=== PATIENT | male | born 1960 | race Caucasian/White ===

== ENCOUNTER 2021-09-05 11:10 | Emergency (ER) | payer OTHER ==
[~2021-09-05] VITALS: Ht 182.9 cm; Wt 84.0 kg
[2021-09-05] MEDS ORDERED: ONDANSETRON PF 4 MG/2 ML VIAL. IVP ONE (12:30)
[2021-09-05] MEDS ORDERED: fentaNYL PF VIAL 100 MCG/2 ML VIAL IVP ONE (12:30)
[2021-09-05] MEDS ORDERED: IV RINGERS,LACTATED 1000ML 1,000 ML IV SCH (12:30)
--- NOTE | 2021-09-05 12:40 | PHYS DOC ---
Past Medical History Past Medical History kidney stone Past Surgical History: No Surgical History Smoking Status: Never Smoker Alcohol Use: None Drug Use: None General Adult EDM: Chief Complaint: FLANK PAIN HPI: HPI: 61-year-old male presents the emergency department complaining of right-sided flank pain since 730 this morning. He reports the pain is sharp, rating down to the groin and is associated with some urinary difficulty. He notes some burning upon urination this morning when he went to the bathroom. Since then he has noticed increased frequency of urine throughout the day. He denies any overt blood from the urine. He notes that he has had some chills today but no fevers. He has had pain like this in the past when he had a previous kidney stone. The patient admits to nausea with 2 episodes of vomiting, denies fever, chest pain, shortness of breath, diarrhea, cough, recent trauma, or any other complaints. Review of Systems: Review of Systems: Constitutional: Negative except what was mentioned in HPI. Eyes: Negative except what was mentioned in HPI. HENT: Negative except what was mentioned in HPI. Respiratory: Negative except what was mentioned in HPI. Cardiovascular: Negative except what was mentioned in HPI. GI: Negative except what was mentioned in HPI. : Negative except what was mentioned in HPI. Musculoskeletal: Negative except what was mentioned in HPI. Integument: Negative except what was mentioned in HPI. Neurologic: Negative except what was mentioned in HPI. Heart Score: C/O Chest Pain: No Physical Exam: PE: Constitutional: No acute distress, non-toxic appearance. HENT: Atraumatic, bilateral external ears normal, nose normal. Eyes: PERRLA, EOMI, conjunctiva normal, no discharge. Neck: Normal range of motion, supple, no stridor. Cardiovascular: Heart rate regular rhythm. 2+ radial pulses Lungs & Thorax: No respiratory distress, symmetrical expansion. Abdomen: Soft, no tenderness right CVA tenderness Skin: Warm, dry. Extremities: No tenderness, no cyanosis, ROM intact, no edema. Neurologic: Alert and oriented X 3, normal motor function, normal sensory func tion, no focal deficits noted. Non ataxic gait. GCS 15. Psychologic: Affect normal, judgment normal, mood normal. Current Patient Data: Labs: Laboratory Tests Test 09/05/21 12:20 09/05/21 13:35 Urine Collection Type Unknown Urine Color Claudette Urine Clarity Clear Urine pH 5.5 (<5.0-8.0) Urine Specific Garrison >=1.030 (1.000-1.030) Urine Protein 30 mg/dL (NEG-TRACE) Urine Glucose (UA) Negative mg/dL (NEG) Urine Ketones (Stick) >=80 mg/dL (NEG) Urine Blood Negative (NEG) Urine Nitrite Negative (NEG) Urine Bilirubin Small (NEG) Urine Urobilinogen Dipstick 0.2 mg/dL (0.2 mg/dL) Urine Leukocyte Esterase Negative (NEG) Urine RBC 0 /HPF (0-2) Urine WBC 0 /HPF (0-4) Urine Squamous Epithelial Cells Few /LPF Urine Bacteria 0 /HPF (0-FEW) Urine Mucus Marked /LPF White Blood Count 11.8 x10^3/uL (4.0-11.0) Red Blood Count 4.16 x10^6/uL (4.30-5.70) Hemoglobin 13.4 g/dL (13.0-17.5) Hematocrit 39.8 % (39.0-53.0) Mean Corpuscular Volume 96 fL (79-100) Mean Corpuscular Hemoglobin 32 pg (25-35) Mean Corpuscular Hemoglobin Concent 34 g/dL (31-37) Red Cell Distribution Width 13.1 % (11.5-14.5) Platelet Count 263 x10^3/uL (140-400) Neutrophils (%) (Auto) 92 % (31-73) Lymphocytes (%) (Auto) 5 % (24-48) Monocytes (%) (Auto) 2 % (0-9) Eosinophils (%) (Auto) 0 % (0-3) Basophils (%) (Auto) 0 % (0-3) Neutrophils # (Auto) 10.9 x10^3/uL (1.8-7.7) Lymphocytes # (Auto) 0.6 x10^3/uL (1.0-4.8) Monocytes # (Auto) 0.2 x10^3/uL (0.0-1.1) Eosinophils # (Auto) 0.0 x10^3/uL (0.0-0.7) Basophils # (Auto) 0.0 x10^3/uL (0.0-0.2) Vital Signs: Vital Signs Date Time Temp Pulse Resp B/P (MAP) Pulse Ox O2 Delivery O2 Flow Rate FiO2 09/05/21 12:10 97.9 70 14 165/70 (101) 98 97.9 Radiology/Procedures: Radiology/Procedures: EXAM: CT Abdomen and Pelvis without IV contrast CLINICAL HISTORY: right sided flank pain COMPARISON: none TECHNIQUE: Helical CT of the abdomen and pelvis without intravenous contrast. Axial, coronal and sagittal reformatted images were generated. PQRS compliance statement - One or more of the following individualized dose reduction techniques were utilized for this study: 1. Automated exposure control 2. Adjustment of the mA and/or kV according to patient size 3. Use of iterative reconstruction technique FINDINGS: Lack of intravenous contrast limits evaluation of solid organs, vasculature, and lymph nodes. Lower chest: Linear opacities in the lobe likely scarring/atelectasis. Abdomen and Pelvis: Calcified granuloma are seen bilaterally. High density material dependently within the gallbladder likely sludge. No biliary ductal dilatation. Pancreas is unremarkable. Spleen is normal in appearance. Bilateral parapelvic renal cysts are seen. High density appearance within the left renal pelvis, possibly hemorrhagic or proteinaceous material. 4 mm calculus in the distal right ureter at the right ureterovesicular junction results in mild right hydronephrosis and hydroureter. Nonobstructing right lower pole and right interpolar renal calculi. Bladder is decompressed. Moderate colonic stool content is seen. Colonic diverticula are seen. No bowel obstruction. Appendix is normal. Aorta is normal in caliber. No abdominal or pelvic lymphadenopathy. No abdominal or pelvic ascites. Bones: Hip joint degenerative changes are seen. IMPRESSION: 1. 4 mm calculus within the distal right ureter about the right ureterovesicular junction results in mild right hydronephrosis and hydroureter. 2. High density material within the renal collecting systems, more prominent in the left renal pelvis, may represent hemorrhagic or proteinaceous material. Recommend correlation with urinalysis. 3. Additional nonobstructing right renal calculi. Electronically signed by: Brett Waite MD (09/05/2021 1:25 PM) Course & Med Decision Making: Course & Med Decision Making Patient with 4 mm UPJ stone, will likely pass spontaneously, the patient is feeling much better after analgesics in the emergency department. He is comfortable with the plan for going home. Advised follow-up with urology. Will give analgesics and Flomax. Discussed return precautions with the patient who is in agreement Departure Departure Impression: Primary Impression: Right nephrolithiasis Disposition: 01 HOME / SELF CARE / HOMELESS Condition: IMPROVED Referrals: NO PCP (PCP) Patient Instructions: Diet for Kidney Stones, Kidney Stones, [id number] Additional Instructions: You were seen in the emergency department for a kidney stone that will hopefully pass. We are writing you a prescription for pain medication as well as Flomax, which will hopefully help assist with passing the stone. We have also given you nausea medication if you should need it. You should check your urine for the stone. Kidney stones can pass in a few days or may take a few weeks depending on many factors. Your ultrasound did not show any signs that your stone is obstructing. You should return to the emergency department if you develop worsening pain, fever, continued bloody urine, lightheadedness, shortness of breath, chest pain, or any other new or concerning symptoms, or difficulty eating or drinking due to nausea. Do not drive while taking the pain medicine and please take as directed. Please follow up with a primary care doctor or urologist in a few days if you are not feeling better. Urology clinic: [facility] Located in: [facility] Address: [address] [place] [address] [address], [place] [address] Scripts Hydrocodone Bit/Acetaminophen (HYDROCODONE-APAP 5325 ) 1 Tab Tablet 1 TAB PO PRN Q6HRS PRN for PAIN for 2 Days, #10 TAB 0 Refills Prov: DENNY VELAZQUEZ DO 09/05/21 Tamsulosin Hcl (FLOMAX) 0.4 Mg Cap.er.24h 1 CAP PO DAILY, #14 CAP 0 Refills Prov: DENNY VELAZQUEZ DO 09/05/21 DENNY VELAZQUEZ DO Sep 05, 2021 12:40
[2021-09-05 12:48] VITALS: BP 149/67
[2021-09-05 13:04] LABS: BILIRUBIN,URINE SMALL (NEG); CLARITY,URINE CLEAR; COLOR,URINE AMBER; NITRITE,URINE NEGATIVE (NEG); PH,URINE 5.5 (<5.0-8.0); PROTEIN,URINE 30 mg/dL (NEG-TRACE); UROBILINOGEN,URINE 0.2 mg/dL (0.2 mg/dL)
[2021-09-05 13:19] LABS: BACTERIA,URINE 0 /HPF (0-FEW); RBC,URINE 0 /HPF (0-2); WBC,URINE 0 /HPF (0-4)
--- NOTE | 2021-09-05 13:27 | RAD ---
EXAM: CT Abdomen and Pelvis without IV contrast CLINICAL HISTORY: right sided flank pain COMPARISON: none TECHNIQUE: Helical CT of the abdomen and pelvis without intravenous contrast. Axial, coronal and sagi ttal reformatted images were generated. PQRS compliance statement - One or more of the following individualized dose reduction techniques wer e utilized for this study: 1. Automated exposure control 2. Adjustment of the mA and/or kV according to patient size 3. Use of iterative reconstruction technique FINDINGS: Lack of intravenous contrast limits evaluation of solid organs, vasculature, and lymph nodes. Lower chest: Linear opacities in the lobe likely scarring/atelectasis. Abdomen and Pelvis: Calcified granuloma are seen bilaterally. High density material dependently within the gallbladder li trang sludge. No biliary ductal dilatation. Pancreas is unremarkable. Spleen is normal in appearance. Bilateral parapelvic renal cysts are seen. High density appearance within the left renal pelvis, poss ibly hemorrhagic or proteinaceous material. 4 mm calculus in the distal right ureter at the right ure terovesicular junction results in mild right hydronephrosis and hydroureter. Nonobstructing right low er pole and right interpolar renal calculi. Bladder is decompressed. Moderate colonic stool content i s seen. Colonic diverticula are seen. No bowel obstruction. Appendix is normal. Aorta is normal in ca liber. No abdominal or pelvic lymphadenopathy. No abdominal or pelvic ascites. Bones: Hip joint degenerative changes are seen. IMPRESSION: 1. 4 mm calculus within the distal right ureter about the right ureterovesicular junction results in mild right hydronephrosis and hydroureter. 2. High density material within the renal collecting systems, more prominent in the left renal pelvi s, may represent hemorrhagic or proteinaceous material. Recommend correlation with urinalysis. 3. Additional nonobstructing right renal calculi. Electronically signed by: Brett Waite MD (09/05/2021 1:25 PM) [facility]
[2021-09-05 13:56] LABS: BASO % 0 % (0-3); EOS % 0 % (0-3); HEMATOCRIT 39.8 % (39.0-53.0); HEMOGLOBIN 13.4 g/dL (13.0-17.5); LYMPH # 0.6 x10^3/uL (1.0-4.8); LYMPH % 5 % (24-48); MEAN CORPUSCULAR HEMOGLOBIN 32 pg (25-35); MEAN CORPUSCULAR HGB CONC 34 g/dL (31-37); MEAN CORPUSCULAR VOLUME 96 fL (79-100); MONO # 0.2 x10^3/uL (0.0-1.1); MONO % 2 % (0-9); NEUT # 10.9 x10^3/uL (1.8-7.7); NEUT % 92 % (31-73); PLATELET COUNT 263 x10^3/uL (140-400); RED BLOOD COUNT 4.16 x10^6/uL (4.30-5.70); RED CELL DISTRIBUTION WIDTH 13.1 % (11.5-14.5); WHITE BLOOD COUNT 11.8 x10^3/uL (4.0-11.0)
[2021-09-05] MEDS ORDERED: TAMS0.4C97 PO (14:14)
[2021-09-05] MEDS ORDERED: HYDR-2761 PO (14:14)
== END 2021-09-05 16:23 | disposition home or self-care (01) ==
LOC: ER 11:10
DX: N13.2 Hydronephrosis with renal and ureteral calculous obstruction (principal)
CPT/HCPCS: 36415; 74176; 81001; 85025; 96361; 96374; 99284; J2405; J3010; J7120